=== PATIENT | female | born 1955 | race African-American/Black ===

== ENCOUNTER 2016-06-16 02:12 | Emergency (ER) | payer BC ==
[~2016-06-16] VITALS: Ht 170.2 cm; Wt 81.6 kg
[2016-06-16 03:02] LABS: BILIRUBIN,URINE NEGATIVE (NEG); GLUCOSE,URINE NEGATIVE (NEG); NITRITE,URINE NEGATIVE (NEG); PH,URINE 5.5; PROTEIN,URINE NEGATIVE (NEG-TRACE)
[2016-06-16 03:02] LABS: BASO % 1 % (0-3); EOS % 3 % (0-3); HEMATOCRIT 36.4 % (36.0-47.0); HEMOGLOBIN 11.9 g/dL (12.0-15.5); LYMPH # 1.4 x10^3/uL (1.0-4.8); LYMPH % 37 % (24-48); MEAN CORPUSCULAR HEMOGLOBIN 26 pg (25-35); MEAN CORPUSCULAR HGB CONC 33 g/dL (31-37); MEAN CORPUSCULAR VOLUME 80 fL (79-100); MONO % 15 % (0-9); NEUT % 44 % (31-73); PLATELET COUNT 288 x10^3/uL (140-400); RED BLOOD COUNT 4.54 x10^6/uL (3.50-5.40); RED CELL DISTRIBUTION WIDTH 15.4 % (11.5-14.5); WHITE BLOOD COUNT 3.6 x10^3/uL (4.0-11.0)
[2016-06-16 03:10] LABS: BACTERIA,URINE MODERATE /HPF (0-FEW); RBC,URINE 0 /HPF (0-2); SQUAMOUS EPITHELIAL CELL,UR MANY /LPF
[2016-06-16] MEDS ORDERED: IV NORMAL SALINE 1000ML BAG 1,000 ML IV SCH (03:30)
[2016-06-16] MEDS ORDERED: FAMOTIDINE 20 MG/2 ML VIAL IVP ONE (03:30)
[2016-06-16] MEDS ORDERED: ONDANSETRON PF 4 MG/2 ML VIAL. IV ONE (03:30)
--- NOTE | 2016-06-16 04:15 | PHYS DOC ---
Past Medical History Past Medical History: Migraines Additional Past Medical Histor: laryngopharyngeal reflux Past Surgical History: Other Additional Past Surgical Histo: colonoscopy Alcohol Use: Occasionally Drug Use: None Adult General Chief Complaint Chief Complaint: MULTIPLE COMPLAINTS HPI HPI Patient is a 60 year old female who presents with 2 days of nausea and vomiting of multiple nonbloody nonbilious emesis and multiple watery diarrhea followed by epigastric abdominal pain. Pain is crampy/achy, nonradiating, constant. She also has achy pains below bilateral anterior ribs that is worse with use of her abdominal muscles. States her pain has been there for the past one day. She denies fever or chills, cough, dyspnea, chest pain, palpitations, hemoptysis, leg pain or swelling, bloody stools, bloody emesis, sick contacts, recent travel or antibiotics. Review of Systems Review of Systems Constitutional: Denies fever or chills [] Eyes: Denies change in visual acuity, redness, or eye pain [] HENT: Denies nasal congestion or sore throat [] Respiratory: Denies cough or shortness of breath [] Cardiovascular: No additional information not addressed in HPI [] GI: Denies bloody stools or bloody emesis [] : Denies dysuria or hematuria [] Musculoskeletal: Denies back pain or joint pain [] Integument: Denies rash or skin lesions [] Neurologic: Denies headache, focal weakness or sensory changes [] Endocrine: Denies polyuria or polydipsia [] Current Medications Current Medications Current Medications Medications (Trade) Dose Ordered Sig/Gisela Start Time Stop Time Status Last Admin Dose Admin Famotidine (Pepcid) 20 mg 1X ONCE 06/16/16 03:30 06/16/16 03:31 DC 06/16/16 03:22 20 MG Multi-Ingredient Mouthwash/Gargle (Gi Cocktail Single Dose) 15 ml 1X ONCE 06/16/16 05:00 06/16/16 05:02 DC 06/16/16 04:51 15 ML Ondansetron HCl (Zofran) 4 mg 1X ONCE 06/16/16 03:30 06/16/16 03:31 DC 06/16/16 03:22 4 MG Potassium Chloride (Klor-Con) 40 meq 1X ONCE 06/16/16 05:00 06/16/16 05:02 DC 06/16/16 04:51 40 MEQ Sodium Chloride (Iv Sodium Chloride 0.9% 1000ml Bag) 1,000 ml @ 1,000 mls/hr Q1H 06/16/16 03:30 06/16/16 04:29 DC 06/16/16 03:21 1,000 MLS/HR Allergies Allergies Allergies Coded Allergies Type Severity Reaction Last Updated Verified metronidazole Allergy Intermediate 06/16/16 Yes Physical Exam Physical Exam Constitutional: Well developed, well nourished, no acute distress, non-toxic appearance. [] HENT: Normocephalic, atraumatic, bilateral external ears normal, oropharynx moist, nose normal. [] Eyes: PERRLA, EOMI. [] Neck: Normal range of motion, supple. [] Cardiovascular:Heart rate regular rhythm [] Lungs & Thorax: Bilateral breath sounds clear to auscultation [] Abdomen: Bowel sounds normal, soft, moderate epigastric tenderness, minimal tenderness along the bilateral lower ribs with no palpable or visual abnormality , no guarding or rebound. [] Skin: Warm, dry, no erythema, no rash. [] Back: No tenderness, no CVA tenderness. [] Extremities: No tenderness, ROM intact, no edema. [] Neurologic: Alert and oriented X 3, normal motor function, normal sensory function, no focal deficits noted. [] Psychologic: Affect normal, judgement normal, mood normal. [] Current Patient Data Vital Signs Vital Signs Date Time Temp Pulse Resp B/P Pulse Ox O2 Delivery O2 Flow Rate FiO2 06/16/16 02:43 97.7 20 20 159/80 98 Room Air 97.7 Lab Values Laboratory Tests Test 06/16/16 02:30 06/16/16 02:37 06/16/16 03:45 Urine Collection Type Unknown Urine Color Yellow Urine Clarity Clear Urine pH 5.5 Urine Specific [place] 1.010 Urine Protein Negativemg/dL (NEG-TRACE) Urine Glucose (UA) Negativemg/dL (NEG) Urine Ketones (Stick) Negativemg/dL (NEG) Urine Blood Negative (NEG) Urine Nitrite Negative (NEG) Urine Bilirubin Negative (NEG) Urine Urobilinogen Dipstick 1.0mg/dL (0.2 mg/dL) Urine Leukocyte Esterase Negative (NEG) Urine RBC 0/HPF (0-2) Urine WBC 1-4/HPF (0-4) Urine Squamous Epithelial Cells Many/LPF Urine Bacteria Moderate/HPF (0-FEW) White Blood Count 3.6x10^3/uL (4.0-11.0) L Red Blood Count 4.54x10^6/uL (3.50-5.40) Hemoglobin 11.9g/dL (12.0-15.5) L Hematocrit 36.4% (36.0-47.0) Mean Corpuscular Volume 80fL (79-100) Mean Corpuscular Hemoglobin 26pg (25-35) Mean Corpuscular Hemoglobin Concent 33g/dL (31-37) Red Cell Distribution Width 15.4% (11.5-14.5) H Platelet Count 288x10^3/uL (140-400) Neutrophils (%) (Auto) 44% (31-73) Lymphocytes (%) (Auto) 37% (24-48) Monocytes (%) (Auto) 15% (0-9) H Eosinophils (%) (Auto) 3% (0-3) Basophils (%) (Auto) 1% (0-3) Neutrophils # (Auto) 1.6x10^3uL (1.8-7.7) L Lymphocytes # (Auto) 1.4x10^3/uL (1.0-4.8) Monocytes # (Auto) 0.5x10^3/uL (0.0-1.1) Eosinophils # (Auto) 0.1x10^3/uL (0.0-0.7) Basophils # (Auto) 0.0x10^3/uL (0.0-0.2) Sodium Level 140mmol/L (136-145) Potassium Level 3.0mmol/L (3.5-5.1) L Chloride Level 106mmol/L (98-107) Carbon Dioxide Level 28mmol/L (21-32) Anion Gap 6 (6-14) Blood Urea Nitrogen 10mg/dL (7-20) Creatinine 0.6mg/dL (0.6-1.0) Estimated GFR (Cockcroft-Gault) 123.0 Glucose Level 96mg/dL (70-99) Calcium Level 8.2mg/dL (8.5-10.1) L Total Bilirubin 0.5mg/dL (0.2-1.0) Direct Bilirubin 0.1mg/dL (0.0-0.2) Aspartate Amino Transferase (AST) 15U/L (15-37) Alanine Aminotransferase (ALT) 12U/L (14-59) L Alkaline Phosphatase 87U/L (46-116) Troponin I Quantitative < 0.017ng/mL (0.000-0.055) Total Protein 6.2g/dL (6.4-8.2) L Albumin 3.0g/dL (3.4-5.0) L Lipase 118U/L (73-393) Laboratory Tests 06/16/16 02:37 Laboratory Tests 06/16/16 03:45 EKG EKG EKG as interpreted by me as normal sinus rhythm, rate 58, no ST-T changes, normal intervals, no ectopy Course & Med Decision Making Course & Med Decision Making Pertinent Labs and Imaging studies reviewed. (See chart for details) Workup is unremarkable other than hypokalemia. This was replaced by mouth. She has no episodes of emesis or diarrhea while here. She is feeling better after medications and tolerating oral intake. Return precautions given. She understands and agrees with plan. Dragon Disclaimer Dragon Disclaimer This electronic medical record was generated, in whole or in part, using a voice recognition dictation system. Departure Departure Impression: Primary Impression: Nausea vomiting and diarrhea Additional Impressions: Epigastric abdominal pain Hypokalemia Disposition: 01 HOME, SELF-CARE Condition: STABLE Referrals: GIANNA LONGO (PCP) Patient Instructions: Diet for Diarrhea, Adult, Gastritis, Adult, [id number] Additional Instructions: Take Zofran as needed for nausea. Follow-up with your primary care doctor. Return for any concerns. Scripts Ondansetron (Zofran Odt)4 Mg Tab.rapdis1 Tab SL Q8HRS #10 TAB Prov:Alejandra ANNE MD 06/16/16 Problem Qualifiers Alejandra ANNE MD Jun 16, 2016 04:15
[2016-06-16 04:24] LABS: CALCIUM 8.2 mg/dL (8.5-10.1); CREATININE 0.6 mg/dL (0.6-1.0); DIRECT BILIRUBIN 0.1 mg/dL (0.0-0.2); TOTAL BILIRUBIN 0.5 mg/dL (0.2-1.0); TOTAL PROTEIN 6.2 g/dL (6.4-8.2)
[2016-06-16] MEDS ORDERED: FAMO20TA5 PO (04:35)
[2016-06-16] MEDS ORDERED: ONDA4TAB10 SL (04:35)
[2016-06-16] MEDS ORDERED: LIDO:MAALOX:DONNATAL 1:1:1 15 ML SINGLE DOSE SWSW ONE (05:00)
[2016-06-16] MEDS ORDERED: POTASSIUM CHLORIDE 20 MEQ TABLET.ER. PO ONE (05:00)
[2016-06-16 05:13] VITALS: BP 129/75
--- NOTE | 2016-06-16 08:30 | EKG ---
[facility] [address] [place] [address] Test Date: 2016-06-16 Test Time: 02:29:18 Pat Name: RAJINDER YOO Department: Room: Gender: F Sales Data [employer]: : 1955 Requested By: Alejandra ANNE Order Number: [id number] Reading MD: Rimma Rodas Measurements Intervals Noti Rate: 58 P: 48 NV: 132 QRS: 1 QRSD: 94 T: -25 QT: 410 QTc: 406 Interpretive Statements SINUS RHYTHM T ABNORMALITY IN ANTERIOR LEADS INFERIOR LEADS ABNORMAL ECG RI6.01 No previous ECG available for comparison Electronically Signed On 06-19-2016 23:19:29 OFFAL BALER by Rimma Rodas
== END 2016-06-16 05:26 | disposition home or self-care (01) ==
LOC: ER 02:12
DX: R11.2 Nausea with vomiting, unspecified (principal); R10.13 Epigastric pain; E87.6 Hypokalemia; R19.7 Diarrhea, unspecified; K21.9 Gastro-esophageal reflux disease without esophagitis; G43.909 Migraine, unspecified, not intractable, without status migrainosus; Z88.1 Allergy status to other antibiotic agents
CPT/HCPCS: 36415; 80048; 80076; 81001; 83690; 84484; 85027; 87086; 93005; 96361; 96374; 96375; 99285; J2405; J7030; S0028